=== PATIENT | male | born 1955 | race Two or more races ===

== ENCOUNTER 2025-03-14 20:06 | Emergency (ER) | payer MEDICARE, OTHER ==
[~2025-03-14] VITALS: Ht 162.6 cm; Wt 68.0 kg
[2025-03-14 21:07] VITALS: TEMP 98.9
[2025-03-14] MEDS ORDERED: LIDOCAINE 2% JEL UROJET 10 ML MM ONE (21:34)
[2025-03-14] MEDS: LIDOCAINE 2% JEL UROJET 10 ML MM ONE (21:35)
[2025-03-14 22:34] LABS: APPEARANCE,URINE CLOUDY (CLEAR)
[2025-03-14 22:37] LABS: BLOOD, URINE 3+ Ery/uL (NEGATIVE); LEUKOCYTE ESTERASE ,URINE 2+ (NEGATIVE); NITRITE, URINE POSITIVE (NEGATIVE); UGLUCOSE TRACE mg/dL (NEGATIVE)
[2025-03-14 22:41] VITALS: BP 115/80; O2SAT 98
[2025-03-14 22:53] LABS: SQUAMOUS EPITHELIAL CELL,UR None Seen /HPF (None Seen)
[2025-03-14 22:56] LABS: ADD URINE CULTURE YES
== END 2025-03-14 22:20 | disposition home or self-care (01) ==
LOC: ER 20:17
DX: N39.0 Urinary tract infection, site not specified (principal); R33.9 Retention of urine, unspecified; Z60.2 Problems related to living alone
CPT/HCPCS: 99284; 51702; 81001; J3490

== ENCOUNTER 2025-03-21 05:49 | Emergency (ER) | payer MEDICARE, OTHER | END 2025-03-21 06:15 | disposition left against medical advice (07) | LOC: ER 05:49 | DX: R39.198 Other difficulties with micturition (principal); Z53.21 Procedure and treatment not carried out due to patient leaving prior to being seen by health care provider ==